=== PATIENT | male | born 1995 | race Caucasian/White ===

== ENCOUNTER 2023-08-04 12:16 | Emergency (ER) | payer OTHER ==
[2023-08-04 12:44] LABS: BILIRUBIN,URINE NEGATIVE (NEGATIVE); GLUCOSE, URINE (UA) NEGATIVE (NEGATIVE); KETONES,URINE (UA) NEGATIVE (NEGATIVE); LEUKOCYTE ESTERASE, URINE NEGATIVE (NEGATIVE); NITRITE,URINE NEGATIVE (NEGATIVE); OCCULT BLOOD,URINE NEGATIVE (NEGATIVE); PH,URINE 7.5 PH (5.0-7.5); PROTEIN,URINE NEGATIVE (NEGATIVE); UROBILINOGEN,URINE 0.2 (NORMAL) E.U./dL (NORMAL)
[2023-08-04 12:48] LABS: BASOPHILS # (AUTO) 0.1 10^3/uL (0.0-0.1); EOSINOPHILS # (AUTO) 0.4 10^3/uL (0.0-0.7); EOSINOPHILS % (AUTO) 5.7 %; HGB - HEMOGLOBIN 13.9 g/dL (14.0-18.0); LYMPHOCYTES # (AUTO) 2.3 10^3/uL (1.5-3.5); LYMPHOCYTES % (AUTO) 37.2 %; MEAN CORPUSCULAR HEMOGLOBIN 30.8 pg (27.0-31.0); MEAN CORPUSCULAR HGB CONC 32.3 g/dL (32.0-36.0); MEAN CORPUSCULAR VOLUME 95.3 fL (80.0-94.0); MEAN PLATELET VOLUME 9.5 fL (7.4-11.4); MONOCYTES # (AUTO) 0.4 10^3/uL (0.0-1.0); NEUTROPHILS % (AUTO) 48.8 %; PLT - PLATELET COUNT 230 10^3/uL (130-450); RED BLOOD COUNT 4.51 10^6/uL (4.70-6.10); RED CELL DISTRIBUTION WIDTH 12.3 % (12.0-15.0); WHITE BLOOD COUNT 6.2 x10^3/uL (4.8-10.8)
[2023-08-04 12:49] LABS: CLARITY,URINE CLEAR (CLEAR)
[2023-08-04 13:11] LABS: ALBUMIN 4.4 g/dL (3.2-5.5); ALBUMIN/GLOBULIN RATIO 1.5 (1.0-2.2); BILIRUBIN,TOTAL 0.4 mg/dL (0.2-1.0); CALCIUM 9.7 mg/dL (8.5-10.3); CREATININE 1.3 mg/dL (0.6-1.3); POTASSIUM 4.2 mmol/L (3.5-4.5); TOTAL PROTEIN 7.4 g/dL (6.4-8.9)
--- NOTE | 2023-08-04 13:41 | ED Physician Documentation ---
PD HPI ABD PAIN - Stated complaint Stated Complaint: ABD PX - Chief complaint Chief Complaint: Abd Pain - History obtained from History obtained from: Patient - History of Present Illness Timing - details: Gradual onset Pain level max: 4 Pain level now: 3 Quality: Aching, Pain Location: Other (Right mid abdomen) Improved by: Laying still Worsened by: Moving, Palpation Associated symptoms: No: Fever, Nausea, Vomiting, Hematemesis, Diarrhea, Constipation, Melena, Hematochezia, Dysuria, Hematuria - Additional information Additional information: 28-year-old male presents to the emergency department with a 1 month of right- sided abdominal pain, worse with movement, better with rest. Feels like a "strained muscle". He states that he had a flulike illness while [place] was on the ship during [place]. He states that the pain has continued. No nausea or vomiting. No diarrhea. No constipation. Better with lying still no blood in the stool or blood in the urine. No flank pain. Has not had similar symptoms previously. [place] Review of Systems Constitutional: denies: Fever, Chills Respiratory: denies: Cough GI: denies: Nausea, Vomiting, Constipation, Diarrhea, Hematemesis, Bloody / black stool : denies: Dysuria, Frequency, Hesitancy Skin: denies: Rash Musculoskeletal: denies: Neck pain, Back pain Neurologic: denies: Headache PD PAST MEDICAL HISTORY - Past Medical History Past Medical History: No Cardiovascular: None Respiratory: None Neuro: None Endocrine/Autoimmune: None GI: None : None HEENT: None Psych: None Musculoskeletal: None Derm: None - Past Surgical History Past Surgical History: No - Present Medications Home Medications: Ambulatory Orders Medication Instructions Recorded Confirmed No Known Home Medications 08/04/23 08/04/23 - Allergies Allergies/Adverse Reactions: Allergies Allergy/AdvReac Type Severity Reaction Status Date / Time Penicillins Allergy Hives Verified 08/04/23 12:19 - Social History Does the pt smoke?: No Smoking Status: Never smoker Does the pt drink ETOH?: No Does the pt have substance abuse?: No Substance Use and Type: Marijuana - Immunizations Immunizations are current?: Yes PD ED PE NORMAL - Vitals Vital signs reviewed: Yes - General General: Alert and oriented X 3, No acute distress - HEENT HEENT: PERRL - Neck Neck: Supple, no meningeal sign - Cardiac Cardiac: RRR - Respiratory Respiratory: No respiratory distress, Clear bilaterally - Abdomen Abdomen: Soft, Non tender, Non distended, Other (No tenderness at McBurney's point. Negative Marley sign.) - Back Back: No CVA TTP, No spinal TTP - Derm Derm: Warm and dry - Extremities Extremities: No edema - Neuro Neuro: Alert and oriented X 3 - Psych Psych: Normal mood, Normal affect Results - Vitals Vitals: Vital Signs - 24 hr 08/04/23 08/04/23 08/04/23 12:19 14:25 16:00 Temperature 36.3 C L 36.1 C L Heart Rate 63 62 71 Respiratory 16 16 16 Rate Blood Pressure 136/68 H 132/84 H 125/72 O2 Saturation 98 98 97 08/04/23 17:17 Temperature Heart Rate 68 Respiratory 14 Rate Blood Pressure 122/76 O2 Saturation 99 Oxygen O2 Source Room air - Labs Labs: Laboratory Tests 08/04/23 08/04/23 08/04/23 12:35 12:39 12:39 WBC 6.2 RBC 4.51 L Hgb 13.9 L Hct 43.0 MCV 95.3 H MCH 30.8 MCHC 32.3 RDW 12.3 Plt Count 230 MPV 9.5 Neut # (Auto) 3.0 Lymph # (Auto) 2.3 [place] # (Auto) 0.4 Eos # (Auto) 0.4 Baso # (Auto) 0.1 Absolute Nucleated RBC 0.00 Nucleated RBC % 0.0 Sodium 138 Potassium 4.2 Chloride 100 L Carbon Dioxide 29 Anion Gap 9.0 BUN 21 H Creatinine 1.3 Estimated GFR (MDRD) 67 L Glucose 99 Calcium 9.7 Total Bilirubin 0.4 AST 19 ALT 15 Alkaline Phosphatase 53 Total Protein 7.4 Albumin 4.4 Globulin 3.0 Albumin/Globulin Ratio 1.5 Lipase 25 Urine Color YELLOW Urine Clarity CLEAR Urine pH 7.5 Ur Specific [place] 1.015 Urine Protein NEGATIVE Urine Glucose (UA) NEGATIVE Urine Ketones NEGATIVE Urine Occult Blood NEGATIVE Urine Nitrite NEGATIVE Urine Bilirubin NEGATIVE Urine Urobilinogen 0.2 (NORMAL) Ur Leukocyte Esterase NEGATIVE Ur Microscopic Review NOT INDICATED Urine Culture Comments NOT INDICATED - Rads (name of study) CT abdomen pelvis Relevant Findings:: Final report received, See rad report PD Medical Decision Making - ED course Complexity details: reviewed results, re-evaluated patient, considered differential, d/w patient ED course: 28-year-old male with right-sided abdominal pain following a viral illness. Appears to have mesenteric adenitis on CT scan. No evidence of appendicitis. No evidence of bowel obstruction, abscess, perforation. Patient is very well- appearing, nontoxic. Afebrile. Tolerating p.o. without difficulty. Declines pain medication here for home. Will continue supportive care and have [place] Patient counseled regarding signs and symptoms for which I believe and urgent re-evaluation would be necessary. Patient with good understanding of and agreement to plan and is comfortable going home at this time This document was made in part using voice recognition software. While efforts are made to proofread this document, sound alike and grammatical errors may occur. Departure - Departure Disposition: 01 Home, Self Care Clinical Impression: Mesenteric adenitis Condition: Good Instructions: ED Adenitis Mesenteric Follow-Up: RADHA MENDOZA MD [Primary Care Provider] - Within 1 week Comments: Please follow-up with your doctor for further care. Please return if you worsen. You appear to have mild mesenteric adenitis which is an inflammation of your lymph nodes often following a viral illness. This should resolve on its own. You can use Motrin or Tylenol as needed for pain.PROCEDURE: Abdomen/Pelvis W INDICATIONS: R sided abd pain CONTRAST: Omni 300 100ml TECHNIQUE: After the administration of intravenous contrast, a CT scan of the abdomen and pelvis was performed. Images were recorded and evaluated at appropriate window settings. Reformats: coronal and sagittal. For radiation dose reduction, the following was used: automated exposure control, adjustment of mA and/or kV according to patient size. COMPARISON: None. FINDINGS: Image quality: Diagnostic Lower chest: Right subsegmental atelectasis. No pleural effusions. Mildly patulous esophagus. Liver: Unremarkable Gallbladder and biliary system: Unremarkable, nondilated Pancreas: No ductal dilation. Spleen: Nonenlarged Adrenals: No discrete nodules Kidneys: No solid mass or hydronephrosis Vessels and lymph nodes: The main portal vein appears patent. There is no abdominal aortic aneurysm or pathologic lymph nodes by size criteria. Bowel and peritoneum: No evidence of small bowel obstruction. No pathologic ascites or drainable abscess. Appendix is not discretely seen. Overall fecal loading is moderate. Mildly enlarged right lower quadrant lymph nodes, for example 4/45. Body wall: Unremarkable Pelvis: Bladder is unremarkable. Prostate is not well evaluated on CT. Bones: No acute or suspicious osseous findings. IMPRESSION: No small bowel obstruction. Unable to discretely identify the appendix. There is moderate fecal loading. Clinical followup is recommended. If there is new or worsening clinical concern, reimaging could be obtained, possibly with oral contrast. No abscess. Mildly enlarged right lower quadrant lymph nodes, indeterminate but may represent mesenteric adenitis. Right subsegmental atelectasis partially seen, indeterminate but most commonly related to mucous plugging. Forms: PCP List Discharge Date/Time: 08/04/23 17:17
[2023-08-04] MEDS ORDERED: iohexoL-300 100 ML VIAL ONE (14:06)
[2023-08-04] MEDS ORDERED: iohexoL-300 100 ML VIAL IVP ONE (15:24)
--- NOTE | 2023-08-04 16:41 | CT Report ---
PROCEDURE: Abdomen/Pelvis W INDICATIONS: R sided abd pain CONTRAST: Omni 300 100ml TECHNIQUE: After the administration of intravenous contrast, a CT scan of the abdomen and pelvis was performed. Images were recorded and evaluated at appropriate window settings. Reformats: coronal and sagittal. F or radiation dose reduction, the following was used: automated exposure control, adjustment of mA and /or kV according to patient size. COMPARISON: None. FINDINGS: Image quality: Diagnostic Lower chest: Right subsegmental atelectasis. No pleural effusions. Mildly patulous esophagus. Liver: Unremarkable Gallbladder and biliary system: Unremarkable, nondilated Pancreas: No ductal dilation. Spleen: Nonenlarged Adrenals: No discrete nodules Kidneys: No solid mass or hydronephrosis Vessels and lymph nodes: The main portal vein appears patent. There is no abdominal aortic aneurysm o r pathologic lymph nodes by size criteria. Bowel and peritoneum: No evidence of small bowel obstruction. No pathologic ascites or drainable absc ess. Appendix is not discretely seen. Overall fecal loading is moderate. Mildly enlarged right lower quadrant lymph nodes, for example 4/45. Body wall: Unremarkable Pelvis: Bladder is unremarkable. Prostate is not well evaluated on CT. Bones: No acute or suspicious osseous findings. IMPRESSION: No small bowel obstruction. Unable to discretely identify the appendix. There is moderate fecal loadi ng. Clinical followup is recommended. If there is new or worsening clinical concern, reimaging could be obtained, possibly with oral contrast. No abscess. Mildly enlarged right lower quadrant lymph nodes, indeterminate but may represent mesenteric adenitis . Right subsegmental atelectasis partially seen, indeterminate but most commonly related to mucous plug ging. Reviewed by: Yeyo Fontenot MD on 08/04/2023 4:40 PM PST Approved by: Yeyo Fontenot MD on 08/04/2023 4:40 PM PST Station ID: [id number]
[2023-08-04 17:24] VITALS: BP 122/76; O2SAT 99
== END 2023-08-04 17:17 | disposition home or self-care (01) ==
LOC: ED 12:16
DX: I88.0 Nonspecific mesenteric lymphadenitis (principal)
CPT/HCPCS: 36415; 74177; 80053; 81003; 83690; 85025; 99283; 99284; Q9967; 81001; 87086